=== PATIENT | male | born 1975 | race Caucasian/White ===

== ENCOUNTER 2018-09-06 09:14 | Emergency (ER) | payer OTHER ==
[2018-09-06 10:28] LABS: Absolute Lymphocytes (CBC) 0.9 K/uL (0.7-4.9); Absolute Monocytes 0.4 K/uL (0.1-1.3); Absolute Neutrophil 6.7 K/uL (1.8-8.0); Basophils % 0.4 % (0-1.3); Eosinophils % 0.4 % (0-4.4); Hematocrit 44.3 % (39.6-49.0); MPV 9.5 fL (7.6-11.3); RBC Red Blood Cell Count 4.88 M/uL (4.33-5.43)
[2018-09-06 10:40] LABS: BUN Blood Urea Nitrogen 17 mg/dL (7-18); Bicarbonate 24 mmol/L (21-32); Glucose Level 106 mg/dL (74-106); Potassium 4.4 mmol/L (3.5-5.1); Sodium Level 138 mmol/L (136-145)
[2018-09-06 10:51] LABS: Urine Bacteria <20 /HPF (NONE SEEN); Urine Culture Reflex Order NOT NEEDED; Urine Mucus 1+ /HPF (NONE SEEN); Urine RBC <5 /HPF (NONE SEEN)
[2018-09-06 10:52] LABS: Urine Blood NEGATIVE (NEG); Urine Glucose NEGATIVE (NEG); Urine Protein NEGATIVE (NEG); Urine Specific Gravity 1.025 (1.005-1.030); Urine pH 5.5 (5.0-7.0)
--- NOTE | 2018-09-06 12:35 | RAD REPORT ---
EXAM DESCRIPTION: CT - Abdomen Pelvis W Contrast - 09/06/2018 12:04 pm CLINICAL HISTORY: Abdominal pain, prior lumbar surgery, hypertension COMPARISON: June 2016 CT imaging TECHNIQUE: Biphasic, helical CT imaging of the abdomen and pelvis was performed following 100 ml non -ionic IV contrast. Oral contrast was given. All CT scans are performed using dose optimization technique as appropriate and may include automated exposure control or mA/KV adjustment according to patient size. FINDINGS: No suspicious findings in the lung bases. The liver, spleen, and pancreas show no suspicious findings. Gallbladder and biliary tree are also wi thout suspicious finding. Symmetric renal function is seen with no hydronephrosis or suspicious renal mass. No pyelonephritis o r acute parenchymal process. No bladder abnormalities. No adrenal abnormalities. No appendicitis findings. No dilated small bowel loops. There are several prominent fluid-filled smal l bowel loops. These are nonspecific but can reflect enteritis. No acute colon process seen. No free air, free fluid or inflammatory stranding. No hernia, mass or bulky lymphadenopathy. No suspicious bony findings. Lower lumbar surgical changes are present. No acute finding. IMPRESSION: No obstruction, free air or surgically emergent finding. A few small bowel loops are prominent. This is nonspecific but could indicate small bowel enteritis.
--- NOTE | 2018-09-06 12:40 | ER ---
Nurse's Notes [facility] Name: Fer Herrera Age: 43 yrs Sex: Male : 1975 Arrival Date: 09/06/2018 Time: 09: Bed 14 Private MD: None, None Diagnosis: Enteritis Presentation: 09/06 09:26 Presenting complaint: Patient states: sharp mid abd pain started this morning. Denies sv n/v. Transition of care: patient was not received from another setting of care. Onset of symptoms was September 06, 2018 at 02:30. Care prior to arrival: None. 09:26 Method Of Arrival: Ambulatory sv 09:26 Acuity: ANIKET 3 sv 13:14 Risk Assessment: Do you want to hurt yourself or someone else? Patient reports no aj1 desire to harm self or others. Initial Sepsis Screen: Does the patient meet any 2 criteria? No. Patient's initial sepsis screen is negative. Does the patient have a suspected source of infection? Yes: Acute abdominal pain. Historical: - Allergies: : peroxicam; sv - PMHx: :29 Anxiety; Depression; Hypertension; osteoarthritis; sv - PSHx: 09:29 L4-S1 fusion; shoulder sx; Shiv shoulders; Tonsillectomy; sv - Immunization history:: Flu vaccine is not up to date. - Social history:: Smoking status: Patient/guardian denies using tobacco. - Ebola Screening: : No symptoms or risks identified at this time. Screenin:30 Abuse screen: Denies threats or abuse. Denies injuries from another. Nutritional aj1 screening: No deficits noted. Tuberculosis screening: No symptoms or risk factors identified. 13:15 Fall Risk None identified. aj1 Assessment: 09:30 General: Appears in no apparent distress. comfortable, Behavior is calm, cooperative, aj1 appropriate for age. Pain: Complains of pain in abdomen Pain currently is 1 out of 10 on a pain scale. Neuro: Level of Consciousness is awake, alert, obeys commands. Cardiovascular: Patient's skin is warm and dry. Respiratory: Airway is patent Respiratory effort is even, unlabored, Respiratory pattern is regular, symmetrical. GI: Abdomen is flat, non-distended, Bowel sounds present X 4 quads. Abd is soft and non tender X 4 quads. Patient currently denies nausea, vomiting. : No signs and/or symptoms were reported regarding the genitourinary system. EENT: No signs and/or symptoms were reported regarding the EENT system. Derm: No signs and/or symptoms reported regarding the dermatologic system. Skin is pink, warm \T\ dry. normal. Musculoskeletal: No signs and/or symptoms reported regarding the musculoskeletal system. Circulation, motion, and sensation intact. 10:30 Reassessment: Patient appears in no apparent distress at this time. No changes from aj1 previously documented assessment. Patient and/or family updated on plan of care and expected duration. Pain level reassessed. Patient is alert, oriented x 3, equal unlabored respirations, skin warm/dry/pink. 11:33 Reassessment: Patient appears in no apparent distress at this time. No changes from aj1 previously documented assessment. Patient and/or family updated on plan of care and expected duration. Pain level reassessed. Patient is alert, oriented x 3, equal unlabored respirations, skin warm/dry/pink. 12:15 Reassessment: Patient appears in no apparent distress at this time. No changes from aj1 previously documented assessment. Patient and/or family updated on plan of care and expected duration. Pain level reassessed. Patient is alert, oriented x 3, equal unlabored respirations, skin warm/dry/pink. 13:14 Reassessment: Patient appears in no apparent distress at this time. No changes from aj1 previously documented assessment. Patient and/or family updated on plan of care and expected duration. Pain level reassessed. Patient is alert, oriented x 3, equal unlabored respirations, skin warm/dry/pink. Vital Signs: 09:29 BP 135 / 78; Pulse 80; Resp 18; Temp 98.4; Pulse Ox 97% ; Weight 90.72 kg; Height 5 ft. sv 9 in. (175.26 cm); Pain 1/10; 11:33 BP 120 / 76; Pulse 73; Resp 18; Pulse Ox 97% on R/A; aj1 09:29 Body Mass Index 29.53 (90.72 kg, 175.26 cm) sv ED Course: 09:22 Patient arrived in ED. sb2 09:22 None, None is Private Physician. sb2 09:27 Triage completed. sv 09:29 Arm band placed on. sv 09:30 Patient has correct armband on for positive identification. Bed in low position. Call aj1 light in reach. Side rails up X 1. 09:30 No provider procedures requiring assistance completed. aj1 09:31 [facility]. kb 09:31 Clark Francis MD is Attending Physician. kb 09:53 Martha Mejia, RN is Primary Nurse. aj1 10:17 Initial lab(s) drawn, by co, sent to lab. Inserted saline lock: 20 gauge in right aj1 forearm, using aseptic technique. Blood collected. 10:25 Urine collected: clean catch specimen, clear. dh3 12:03 Abdomen In Process Unspecified. EDMS 13:14 IV discontinued, intact, bleeding controlled, No redness/swelling at site. Pressure aj1 dressing applied. Administered Medications: No medications were administered Outcome: 12:39 Discharge ordered by . kb 13:15 Discharged to home ambulatory. aj1 13:15 Condition: good 13:15 Discharge instructions given to patient, Instructed on discharge instructions, follow up and referral plans. Demonstrated understanding of instructions, follow-up care. 13:15 Patient left the ED. aj1 Signatures: Dispatcher [employer] EDTX Neeta Blum FNP-C FNP-Martha Madrid, RN RN aj1 Elizabeth France, RN RN Linda Rodrigueznna 3 Otilia Perez 2
--- NOTE | 2018-09-06 12:40 | EDPHYS ---
Physician Documentation [facility] Name: Fer Herrera Age: 43 yrs Sex: Male : 1975 Arrival Date: 09/06/2018 Time: 09:22 Bed 14 Private MD: None, None ED Physician Clark Francis HPI: 09/06 11:44 This 43 yrs old Male presents to ER via Ambulatory with complaints of kb Abdominal Pain. 11:44 The patient presents with abdominal pain in the lower abdomen. Onset: The kb symptoms/episode began/occurred at 02:30. The symptoms do not radiate. Associated signs and symptoms: none. The symptoms are described as constant. Modifying factors: The symptoms are alleviated by nothing, the symptoms are aggravated by nothing. Severity of pain: At its worst the pain was moderate in the emergency department the pain is unchanged. The patient has experienced similar episodes in the past. The patient has not recently seen a physician. Historical: - Allergies: : peroxicam; sv - PMHx: : Anxiety; Depression; Hypertension; osteoarthritis; sv - PSHx: 09:29 L4-S1 fusion; shoulder sx; Shiv shoulders; Tonsillectomy; sv - Immunization history:: Flu vaccine is not up to date. - Social history:: Smoking status: Patient/guardian denies using tobacco. - Ebola Screening: : No symptoms or risks identified at this time. ROS: 11:41 Constitutional: Negative for fever, chills, and weight loss, Cardiovascular: Negative kb for chest pain, palpitations, and edema, Respiratory: Negative for shortness of breath, cough, wheezing, and pleuritic chest pain, Back: Negative for injury and pain, : Negative for injury, bleeding, discharge, and swelling, MS/Extremity: Negative for injury and deformity, Skin: Negative for injury, rash, and discoloration, Neuro: Negative for headache, weakness, numbness, tingling, and seizure. 11:41 Abdomen/GI: Positive for abdominal pain, Negative for nausea, vomiting, and diarrhea, constipation, abdominal cramps, abdominal distension, anorexia. Exam: 11:43 Constitutional: This is a well developed, well nourished patient who is awake, alert, kb and in no acute distress. Head/Face: Normocephalic, atraumatic. Neck: Trachea midline, no thyromegaly or masses palpated, and no cervical lymphadenopathy. Supple, full range of motion without nuchal rigidity, or vertebral point tenderness. No Meningismus. Chest/axilla: Normal chest wall appearance and motion. Nontender with no deformity. No lesions are appreciated. Cardiovascular: Regular rate and rhythm with a normal S1 and S2. No gallops, murmurs, or rubs. Normal PMI, no JVD. No pulse deficits. Respiratory: Lungs have equal breath sounds bilaterally, clear to auscultation and percussion. No rales, rhonchi or wheezes noted. No increased work of breathing, no retractions or nasal flaring. Back: No spinal tenderness. No costovertebral tenderness. Full range of motion. Skin: Warm, dry with normal turgor. Normal color with no rashes, no lesions, and no evidence of cellulitis. MS/ Extremity: Pulses equal, no cyanosis. Neurovascular intact. Full, normal range of motion. Neuro: Awake and alert, GCS 15, oriented to person, place, time, and situation. Cranial nerves II-XII grossly intact. Motor strength 5/5 in all extremities. Sensory grossly intact. Cerebellar exam normal. Normal gait. 11:43 Abdomen/GI: Inspection: abdomen appears normal, Bowel sounds: normal, in all quadrants, Palpation: soft, in all quadrants, mild abdominal tenderness, in the right upper quadrant and left upper quadrant, moderate abdominal tenderness, in the right lower quadrant and left lower quadrant. Vital Signs: 09:29 BP 135 / 78; Pulse 80; Resp 18; Temp 98.4; Pulse Ox 97% ; Weight 90.72 kg; Height 5 ft. sv 9 in. (175.26 cm); Pain 1/10; 11:33 BP 120 / 76; Pulse 73; Resp 18; Pulse Ox 97% on R/A; aj1 09:29 Body Mass Index 29.53 (90.72 kg, 175.26 cm) sv MDM: 09:31 Patient medically screened. kb 11:41 Data reviewed: vital signs, nurses notes. Data interpreted: Pulse oximetry: on room air kb is 97 %. Interpretation: normal. 12:38 Counseling: I had a detailed discussion with the patient and/or guardian regarding: the kb historical points, exam findings, and any diagnostic results supporting the discharge/admit diagnosis, lab results, radiology results, the need for outpatient follow up, a family practitioner, to return to the emergency department if symptoms worsen or persist or if there are any questions or concerns that arise at home. 09/06 09:34 Order name: Glucose, Ancillary Testing; Complete Time: 09:38 EDMS 09/06 09:52 Order name: Basic Metabolic Panel kb 09/06 09:52 Order name: CBC with Diff kb 09/06 09:53 Order name: Basic Metabolic Panel; Complete Time: 10:40 EDMS 09/06 09:53 Order name: CBC with Automated Diff; Complete Time: 10:36 EDMS 09/06 10:27 Order name: Urine Microscopic Only; Complete Time: 10:52 dh3 09/06 09:52 Order name: IV Saline Lock; Complete Time: 10:27 kb 09/06 09:52 Order name: Labs collected and sent; Complete Time: 10:27 kb 09/06 09:52 Order name: Urine Dipstick-Ancillary (obtain specimen); Complete Time: 10:28 kb 09/06 10:30 Order name: Urine Dipstick--Ancillary (enter results); Complete Time: 10:52 eb 09/06 11:41 Order name: Abdomen ; Complete Time: 12:38 EDMS Administered Medications: No medications were administered Disposition: 17:27 Co-signature as Attending Physician, Clark Francis MD. ma2 Disposition: 09/06/18 12:39 Discharged to Home. Impression: Enteritis. - Condition is Stable. - Discharge Instructions: Viral Gastroenteritis, Adult, [id number]. - Medication Reconciliation Form, Thank You Letter, Antibiotic Education, Prescription Opioid Use form. - Follow up: Emergency Department; When: As needed; Reason: Worsening of condition. Follow up: Private Physician; When: 2 - 3 days; Reason: Recheck today's complaints, Continuance of care, Re-evaluation by your physician. Signatures: Dispatcher [employer] EDNJ Neeta Blum FNP-C FNP-Martha Madrid RN RN aj1 Elizabeth France RN RN sv Alzahri, Mohammad, MD MD ma2 Corrections: (The following items were deleted from the chart) 13:15 12:39 09/06/2018 12:39 Discharged to Home. Impression: Enteritis. Condition is Stable. aj1 Forms are Medication Reconciliation Form, Thank You Letter, Antibiotic Education, Prescription Opioid Use. Follow up: Emergency Department; When: As needed; Reason: Worsening of condition. Follow up: Private Physician; When: 2 - 3 days; Reason: Recheck today's complaints, Continuance of care, Re-evaluation by your physician. kb
== END 2018-09-06 13:15 | disposition home or self-care (01) ==
LOC: ER 09:14
DX: K52.9 Noninfective gastroenteritis and colitis, unspecified (principal); I10 Essential (primary) hypertension; Z88.8 Allergy status to other drugs, medicaments and biological substances
CPT/HCPCS: 36415; 74177; 80048; 81003; 81015; 82962; 85025; 99283; Q9967

== ENCOUNTER 2020-03-11 13:59 | Emergency (ER) | payer OTHER ==
--- NOTE | 2020-03-11 14:51 | RAD REPORT ---
EXAM DESCRIPTION: CT - Head Brain Wo Cont - 03/11/2020 2:45 pm CLINICAL HISTORY: TRAUMA, syncope COMPARISON: No comparisons TECHNIQUE: Axial 5 mm thick images of the head were obtained without IV contrast. All CT scans are performed using dose optimization technique as appropriate and may include automated exposure control or mA/KV adjustment according to patient size. FINDINGS: No intracranial hemorrhage, mass, edema or shift of mid-line structures. No acute infarcti on changes seen. No abnormal extra-axial fluid collections. Ventricles are normal in size but slightl y asymmetric. This is a normal anatomic variant. Mastoid air cells and visualized portions of the paranasal sinuses are clear. No acute bony findings. IMPRESSION: Negative non-contrast CT head examination for acute or significant finding.
[2020-03-11 15:39] LABS: Hematocrit 42.6 % (39.6-49.0); MPV 9.1 fL (7.6-11.3); RBC Red Blood Cell Count 4.73 M/uL (4.33-5.43)
--- NOTE | 2020-03-11 16:16 | ER ---
Nurse's Notes [facility] Name: Fer Herrera Age: 45 yrs Sex: Male : 1975 Arrival Date: 03/11/2020 Time: 14:09 Bed 12 Private MD: Diagnosis: Syncope and collapse;Unspecified injury of head Presentation: 03/11 14:32 Chief complaint: Patient states: PASSED OUT AND FELL AT HOME. Coronavirus screen: bp Proceed with normal triage. Ebola Screen: No symptoms or risks identified at this time. Initial Sepsis Screen: Does the patient meet any 2 criteria? No. Patient's initial sepsis screen is negative. Does the patient have a suspected source of infection? No. Patient's initial sepsis screen is negative. Risk Assessment: Do you want to hurt yourself or someone else? Patient reports no desire to harm self or others. Onset of symptoms was March 11, 2020. 14:32 Method Of Arrival: Ambulatory bp 14:32 Acuity: ANIKET 4 bp Triage Assessment: 14:35 General: Appears in no apparent distress. comfortable, Behavior is calm, cooperative, bp appropriate for age. Pain: Complains of pain in back of head. EENT: No deficits noted. Neuro: No deficits noted. Cardiovascular: No deficits noted. Respiratory: No deficits noted. GI: No signs and/or symptoms were reported involving the gastrointestinal system. : No signs and/or symptoms were reported regarding the genitourinary system. Derm: No deficits noted. Musculoskeletal: No deficits noted. Historical: - Allergies: 14:34 peroxicam; bp - Home Meds: 14:34 None [Active]; bp - PMHx: 14:34 Anxiety; Depression; Diabetes - NIDDM; Hypertension; osteoarthritis; bp - Immunization history:: Last tetanus immunization: up to date. - Social history:: Smoking status: Patient denies any tobacco usage or history of. Screenin:35 Abuse screen: Denies threats or abuse. Denies injuries from another. Nutritional bp screening: No deficits noted. Tuberculosis screening: No symptoms or risk factors identified. Fall Risk None identified. Assessment: 14:35 General: SEE TRIAGE NOTE. bp 15:33 Reassessment: EKG PAGED. bp 15:33 Reassessment: NO S/S ACUTE DISTRESS. NO CHANGE IN NEURO STATUS. bp 16:23 Reassessment: PT D/C HOME AMBULATORY, DX WITH SUPERFICIAL HEAD INJURY. bp Vital Signs: 14:32 BP 133 / 73; Pulse 63; Resp 17; Temp 98.1; Pulse Ox 98% ; Weight 90.72 kg; Height 5 ft. bp 9 in. (175.26 cm); 15:30 BP 127 / 69; Pulse 71; Resp 17; Pulse Ox 98% ; bp 16:24 BP 125 / 71; Pulse 69; Resp 17; Temp 98.3; Pulse Ox 99% ; bp 14:32 Body Mass Index 29.53 (90.72 kg, 175.26 cm) bp ED Course: 14:09 Patient arrived in ED. mr 14:20 Sudheer Nicholson PA is PHCP. chad 14:20 Clark Francis MD is Attending Physician. jmm 14:33 Triage completed. bp 14:34 Arm band placed on. bp 14:35 Patient has correct armband on for positive identification. Bed in low position. Call bp light in reach. Side rails up X2. 14:45 Garo Whiteside, RN is Primary Nurse. bp 14:46 CT Head Brain wo Cont In Process Unspecified. EDMS 16:23 No provider procedures requiring assistance completed. Patient did not have IV access bp during this emergency room visit. Administered Medications: No medications were administered Outcome: 16:15 Discharge ordered by . [facility] 16:25 Discharged to home ambulatory. bp 16:25 Condition: stable 16:25 Discharge instructions given to patient, Instructed on discharge instructions, follow up and referral plans. Demonstrated understanding of instructions, follow-up care. 16:26 Patient left the ED. bp Signatures: Dispatcher [employer] EDMS Sudheer Nicholson PA PA Melissa Carrera mr Garo Whiteside, RN RN bp
--- NOTE | 2020-03-11 16:16 | EDPHYS ---
Physician Documentation [facility] Name: Fer Herrera Age: 45 yrs Sex: Male : 1975 Arrival Date: 03/11/2020 Time: 14:09 Bed 12 Private MD: ED Physician Clark Francis HPI: 03/11 14:36 This 45 yrs old Male presents to ER via Ambulatory with complaints of Head jmm Injury Without LOC-Adult. 14:36 The patient or guardian reports injury, pain. Onset: The symptoms/episode jmm began/occurred acutely, just prior to arrival. Associated signs and symptoms: Loss of consciousness: This patient experience a loss of consciousness. This is a 45 year old male with a history of depression, dm, htn that presents to the ED with complaints of right sided headache after a syncopal while performing a bowel movement earlier today. Patient states this has happened many times before and attributes this partly to diet and hypoglycemia. Patient denies shortness of breath. . Historical: - Allergies: 14:34 peroxicam; bp - Home Meds: 14:34 None [Active]; bp - PMHx: 14:34 Anxiety; Depression; Diabetes - NIDDM; Hypertension; osteoarthritis; bp - Immunization history:: Last tetanus immunization: up to date. - Social history:: Smoking status: Patient denies any tobacco usage or history of. ROS: 14:36 Constitutional: Negative for fever, chills, and weight loss, Cardiovascular: Negative jmm for chest pain, palpitations, and edema, Respiratory: Negative for shortness of breath, cough, wheezing, and pleuritic chest pain. 14:36 Neuro: Positive for headache. 14:36 All other systems are negative. Exam: 14:36 Constitutional: This is a well developed, well nourished patient who is awake, alert, jmm and in no acute distress. 14:36 Eyes: EOMI, no conjunctival erythema appreciated ENT: Moist Mucus Membranes Neck: Trachea midline, Supple Chest/axilla: Normal chest wall appearance and motion. Cardiovascular: Regular rate and rhythm. No edema appreciated Respiratory: Normal respirations, no respiratory distress appreciated Abdomen/GI: Non distended, soft Back: Normal ROM Skin: General appearance color normal MS/ Extremity: Moves all extremities, no obvious deformities appreciated, no edema noted to the lower extremities Neuro: Awake and alert, normal gait Psych: Behavior is normal, Mood is normal, Patient is cooperative and pleasant 14:36 Head/face: Noted is right parietal scalp TTP. 16:16 ECG was reviewed by the Attending Physician. [facility] Vital Signs: 14:32 BP 133 / 73; Pulse 63; Resp 17; Temp 98.1; Pulse Ox 98% ; Weight 90.72 kg; Height 5 ft. bp 9 in. (175.26 cm); 15:30 BP 127 / 69; Pulse 71; Resp 17; Pulse Ox 98% ; bp 16:24 BP 125 / 71; Pulse 69; Resp 17; Temp 98.3; Pulse Ox 99% ; bp 14:32 Body Mass Index 29.53 (90.72 kg, 175.26 cm) bp MDM: 14:58 Patient medically screened. [facility] 16:13 Data reviewed: vital signs, nurses notes. Counseling: I had a detailed discussion with [facility] the patient and/or guardian regarding: the historical points, exam findings, and any diagnostic results supporting the discharge/admit diagnosis, lab results, the need for outpatient follow up, smoking cessation. ED course: Negative for Mitchell syncope rules. PERC negative. Patient is advised to follow up with pcp and otherwise given strict return precautions. Patient understood and agrees with the plan of care. . 07 15:17 Order name: CBC w/o diff; Complete Time: 15:52 [facility] 03/11 14:35 Order name: CT Head Brain wo Cont; Complete Time: 14:59 bp 03/11 15:17 Order name: EKG - Nurse/Tech; Complete Time: 16:14 [facility] EC:16 Rate is 66 beats/min. Rhythm is regular. QRS Britt is Normal. AL interval is normal. QRS [facility] interval is normal. QT interval is normal. No Q waves. T waves are Normal. No ST changes noted. Reviewed by me. Administered Medications: No medications were administered Disposition: 16:13 Chart complete. Chart complete. [facility] 19:11 Co-signature as Attending Physician, Clark Francis MD. ma2 Disposition: 03/11/20 16:15 Discharged to Home. Impression: Syncope and collapse, Unspecified injury of head. - Condition is Stable. - Discharge Instructions: Head Injury, Adult, Syncope. - Medication Reconciliation Form, Thank You Letter, Antibiotic Education, Prescription Opioid Use form. - Follow up: Private Physician; When: 2 - 3 days; Reason: Recheck today's complaints, Continuance of care, Re-evaluation by your physician. Signatures: Dispatcher [employer] EDSudheer Chan PA PA jmm Peltier, Brian, RN RN bp Clark Francis MD MD ma2 Corrections: (The following items were deleted from the chart) 16:26 16:15 03/11/2020 16:15 Discharged to Home. Impression: Syncope and collapse; bp Unspecified injury of head. Condition is Stable. Forms are Medication Reconciliation Form, Thank You Letter, Antibiotic Education, Prescription Opioid Use. Follow up: Private Physician; When: 2 - 3 days; Reason: Recheck today's complaints, Continuance of care, Re-evaluation by your physician. chad
[2020-03-11 16:41] VITALS: BP 133/73; TEMP 98.1; O2SAT 98
== END 2020-03-11 16:26 | disposition home or self-care (01) ==
LOC: ER 13:59
DX: S09.90XA Unspecified injury of head, initial encounter (principal); I10 Essential (primary) hypertension; Z88.8 Allergy status to other drugs, medicaments and biological substances
CPT/HCPCS: 36415; 70450; 85027; 93005; 99283